=== PATIENT | male | born 1965 | race Asian ===

== ENCOUNTER 2016-12-12 10:40 | Emergency (ER) | payer OTHER, MEDICAID ==
[2016-12-12 15:04] VITALS: BP 128/70
== END 2016-12-12 15:04 | disposition home or self-care (01) ==
LOC: ED 10:40
DX: L03.213 Periorbital cellulitis (principal); G80.9 Cerebral palsy, unspecified; F79 Unspecified intellectual disabilities; Z88.8 Allergy status to other drugs, medicaments and biological substances; Z88.1 Allergy status to other antibiotic agents; Z79.899 Other long term (current) drug therapy
CPT/HCPCS: 90715

== ENCOUNTER 2017-08-09 11:17 | Emergency (ER) | payer OTHER, MEDICAID ==
[~2017-08-09] VITALS: Ht 162.6 cm; Wt 48.1 kg
[2017-08-09 13:48] LABS: CALCIUM 8.8 mg/dL (8.5-10.1); CARBON DIOXIDE 28.4 mmol/L (21-32); CHLORIDE SERUM 97 mmol/L (98-107); CREATININE SERUM 0.9 mg/dL (0.7-1.3); GFR1 > 60 mL/min; GLUCOSE SERUM 81 mg/dL (74-106); POTASSIUM SERUM 3.9 mmol/L (3.5-5.1); SODIUM SERUM 133 mmol/L (136-145)
[2017-08-09 14:02] LABS: ALBUMIN 2.7 g/dL (3.4-5.0); ALKALINE PHOSPHATASE 158 U/L (46-116); ALT/SGPT 114 U/L (16-63); AST/SGOT 94 U/L (15-37); BILIRUBIN TOTAL 3.8 mg/dL (0.20-1.00); T4(THYROXINE) 10.2 ug/dL (4.7-13.3); TOTAL PROTEIN, SERUM 6.6 g/dL (6.4-8.2)
[2017-08-09 14:12] LABS: PLATELET COUNT 101 x10^3mcL (130-400); RED CELL DISTRIBUTION WIDTH 17.5 % (11.5-14.5)
[2017-08-09 14:13] LABS: BAND NEUTROPHIL 41 % (0-10); METAMYELOCTE 6 % (0-2); MONOCYTE 14 % (0-7); MYELOCYTE 2 % (0-2); SEGMENTED NEUTROPHILS 34 % (37-75)
[2017-08-09 14:14] LABS: PLATELET MORPHOLOGY PLATELETS DECREASED; rbc morphology (normal/abnorm) ABNORMAL (NORMAL)
[2017-08-09 14:21] LABS: UA SPECIFIC GRAVITY 1.025 (1.005-1.035); microscopic required? YES; urine erythrocyte TRACE (NEGATIVE)
[2017-08-09] MEDS ORDERED: MULTI-VITAMINS1 TAB PO (14:29)
[2017-08-09] MEDS ORDERED: DILANTIN100 MG (14:29)
[2017-08-09] MEDS ORDERED: OLANZAPINE10 MG PO (14:30)
[2017-08-09] MEDS ORDERED: DILANTIN100 MG PO (14:30)
[2017-08-09] MEDS ORDERED: VAL250 PO (14:30)
[2017-08-09] MEDS ORDERED: STOOL SOFTENER250 M2 PO (14:30)
[2017-08-09] MEDS ORDERED: MASON NATURAL1000 IU (14:31)
[2017-08-09] MEDS ORDERED: PHENYTOIN50 MG PO (14:31)
[2017-08-09] MEDS ORDERED: KEPPRA500 MG PO (14:31)
[2017-08-09] MEDS ORDERED: SUDOGEST30 MG PO (14:32)
[2017-08-09] MEDS ORDERED: LAXATIVE5 M1 PO (14:32)
[2017-08-09 15:28] LABS: PHOSPHOROUS 3.8 mg/dL (2.5-4.9)
[2017-08-09 15:31] LABS: CHOLESTEROL/HDL RATIO 4.8
[2017-08-09 15:52] LABS: FREE T4 1.62 ng/dL (0.76-1.46); FREE THYROXINE INDEX 3.8 ug/dL (1.4-4.5); T4(THYROXINE) 11.1 ug/dL (4.7-13.3)
[2017-08-09 16:30] VITALS: BP 96/37
[2017-08-10 09:17] LABS: T3 TOTAL 0.81 ng/mL
== END 2017-08-09 16:30 | disposition short-term general hospital (02) ==
LOC: ED 11:17 → DU 14:44 → ED 16:30
PROVIDERS: Emergency Medicine; Family Medicine Sports Medicine
DX: S05.11XA Contusion of eyeball and orbital tissues, right eye, initial encounter (principal); J18.9 Pneumonia, unspecified organism; E87.3 Alkalosis; D72.825 Bandemia; E46 Unspecified protein-calorie malnutrition; R74.0 Nonspecific elevation of levels of transaminase and lactic acid dehydrogenase [LDH]; Q90.9 Down syndrome, unspecified; G80.9 Cerebral palsy, unspecified; F79 Unspecified intellectual disabilities; T42.6X5A Adverse effect of other antiepileptic and sedative-hypnotic drugs, initial encounter; Y92.89 Other specified places as the place of occurrence of the external cause; W18.30XA Fall on same level, unspecified, initial encounter; Y93.89 Activity, other specified; Y99.8 Other external cause status
CPT/HCPCS: 36600; 82962; 83880; 84439; 87804; J1956; J7030; J7040